=== PATIENT | male | born 1945 | race Caucasian/White ===

== ENCOUNTER 2018-05-03 20:27 | Emergency (ER) | payer OTHER ==
--- NOTE | 2018-05-03 22:34 | ED Physician Documentation ---
PD HPI UPPER EXT INJURY - Stated complaint Stated Complaint: L HAND LAC - Chief complaint Chief Complaint: Laceration - History obtained from History obtained from: Patient - History of Present Illness Location: Left, Hand Type of injury: Other (pinched by a crab's claws) Timing - onset: Enter time (19:00), Today Timing - details: Abrupt onset Associated symptoms: No: Weakness, Numbness Similar symptoms before: Has not had sx before Recently seen: Not recently seen - Additonal information Additional information: sustained left hand laceration 7 PM tonight when a crab pinched him with its claw. patient is right-hand dominant. UTD on tetanus Review of Systems Skin: reports: Laceration (s) Neurologic: denies: Focal weakness, Numbness PD PAST MEDICAL HISTORY - Past Medical History Past Medical History: No - Past Surgical History Past Surgical History: No - Present Medications Home Medications: Ambulatory Orders Medication Instructions Recorded Confirmed Lorazepam [Ativan] 05/03/18 Prednisone [Fan] 05/03/18 - Allergies Allergies/Adverse Reactions: Allergies Allergy/AdvReac Type Severity Reaction Status Date / Time No Known Drug Allergies Allergy Verified 05/03/18 20:51 - Social History Does the pt smoke?: No Smoking Status: Never smoker Does the pt drink ETOH?: Yes ETOH Use: Beer Does the pt have substance abuse?: No - Immunizations Immunizations are current?: Yes PD ED PE NORMAL - Vitals Vital signs reviewed: Yes - General General: Alert and oriented X 3, No acute distress, Well developed/nourished - Neuro Neuro: No motor deficit, No sensory deficit PD ED PE EXPANDED - Extremities KINJAL UE/Hands Visual: 1 - laceration (1.5 cm) Results - Vitals Vitals: Vital Signs - 24 hr 05/03/18 05/03/18 20:48 23:22 Temperature 36.6 C Heart Rate 62 70 Respiratory 18 18 Rate Blood Pressure 145/75 H 135/72 H O2 Saturation 95 99 Oxygen O2 Source Room air Procedures - Laceration (location) Hand left Palmar Length in cm: 1.5 Wound type: Linear, Into subcut fat, Clean Neurovascular status: Sensory intact, Motor intact, Vascular intact Tendon involvement: Tendon intact Anesthesia: Lidocaine 1% Wound Preparation: Chlorhexadine Skin layer closure: Nylon, Interrupted (in addition to running stitch, a single simple interrupted suture was also placed), Running, Size #-0 - enter number (4- 0) Other: Patient tolerated well, No complications, Neurovascular intact, Dressing applied, Tetanus UTD Complexity: Simple PD MEDICAL DECISION MAKING - ED course Complexity details: considered differential, d/w patient - Sepsis Event Vital Signs: Vital Signs - 24 hr 05/03/18 05/03/18 20:48 23:22 Temperature 36.6 C Heart Rate 62 70 Respiratory 18 18 Rate Blood Pressure 145/75 H 135/72 H O2 Saturation 95 99 Oxygen O2 Source Room air Departure - Departure Disposition: 01 Home, Self Care Clinical Impression: Laceration Condition: Good Instructions: ED Laceration Hand Comments: Follow up with your primary care physician in 7-8 days for suture removal. If you cannot arrange this follow-up, you can go to any clinic, urgent care center , or emergency department for stitch removal Discharge Date/Time: 05/03/18 23:23
[2018-05-03] MEDS ORDERED: LIDOCAINE 1% 2 ML VIAL SUBQ STA (22:44)
[2018-05-03] MEDS ORDERED: BACITRACIN OINT TOP STA (23:10)
[2018-05-03 23:23] VITALS: BP 135/72
== END 2018-05-03 23:23 | disposition home or self-care (01) ==
LOC: EDBD → ED 20:27
DX: S61.412A Laceration without foreign body of left hand, initial encounter (principal); W23.0XXA Caught, crushed, jammed, or pinched between moving objects, initial encounter
CPT/HCPCS: 12001; 99282; 99283; A9270